=== PATIENT | male | born 1955 | race Caucasian/White ===

== ENCOUNTER 2022-03-19 06:00 | Day surgery (SDC) | payer OTHER ==
[~2022-03-19] VITALS: Ht 182.9 cm; Wt 99.5 kg
[~2022-03-19 06:00] MED LIST: ALDACTONE25 MG PO; ALOGLIPTIN12.5 MG PO; ASPIRIN81 MG PO; ENTRESTO 24 MG1 EACH PO; LIPITOR20 MG PO; MAPAP500 MG PO; METOPROLOL SUCC50 MG PO; REVATIO20 MG PO; VITAMIN D325 MC4 PO
--- NOTE | 2022-03-19 08:13 | NUR ---
03/19/22 0813 Xin Herrmann 0807-PATIENT ARRIVED TO PACU ON 6L MASK RR EVEN. PATIENT NONAROUSABLE LAYING LEFT LATERAL ABDOMEN SOFT. IVF INFUSING. SR.
--- NOTE | 2022-03-19 08:16 | NUR ---
PT ALERT, ORIENTED AND SUPPORTED BY HIS . PT IS HERE FOR HIS FIRST SCOPE. SEEMED TO DEAL WITH PREP APPROPRIATELY. OR STAFF WAITING, GAVE BLESSING, PTS' WILL REMAIN FOR DC. WILL FOLLOW NEEDED
--- NOTE | 2022-03-19 08:56 | OR ---
[facility] [address] [place], [place] [address] Signed DATE OF OPERATION: 03/19/2022 SURGEON: Michael Vasquez MD PREOPERATIVE DIAGNOSIS: Screening. POSTOPERATIVE DIAGNOSES: 1. Long redundant colon. 2. 5 mm polyp proximal transverse colon. 3. 8 mm polyp at splenic flexure (snare). 4. Minimal internal hemorrhoids. PROCEDURE: Colonoscopy with snare polypectomy and hot biopsy. ESTIMATED BLOOD LOSS: None. INDICATIONS: Rupert is a 66-year-old gentleman asked to see me for his initial screening colonoscopy. He has no family history of colon cancer or polyps. He told me his girlfriend of many years underwent colonoscopy with myself several years ago. More recently, Rupert underwent open-heart surgery with replacement of his mitral valve and insertion of a pacemaker. He has now gotten pass that and is doing quite well. In the office, I had given him a pamphlet on colonoscopy. We had reviewed the nature of the test. There is risk including, but not limited to gas bloating, crampy abdominal pain, bleeding, perforation requiring surgery, and missed diagnosis. We also reviewed the written instructions for the bowel prep line by line. He held his aspirin 3 days prior to the procedure. Also given his advanced medical issues including his heart, he requires monitored anesthesia care with infusion of propofol. He had expressed understanding and wished to proceed. PROCEDURE NOTE: Rupert was taken into our endoscopy suite and placed in the left lateral decubitus position. He was maintained on IV propofol per our nurse ramp service agent. A digital rectal exam was performed and this was unremarkable. There were no external hemorrhoids. He had good sphincter tone. We did not specifically feel anything concerning on the prostate gland. The adult colonoscope had been introduced and advanced under direct visualization of the camera. Overall, his prep was good. He had a few areas of liquid Electronically Signed By: MICHAEL VASQUEZ MD 03/19/22 0856 PATIENT NAME: RUPERT CUETO OPERATIVE REPORT DATE OF : 59 REPORT #: [id number] PHYSICIAN: MICHAEL VASQUEZ MD PCP: SHRADDHA RUBIO MD REPORT IS CONFIDENTIAL AND NOT TO BE RELEASED WITHOUT AUTHORIZATION [facility] [address] [place], [place] [address] Signed stool that we suctioned out for the most part. He has an incredibly long redundant left and transverse colon. His abdomen is quite atonic and protuberant and it took extra sedation and abdominal compression in order to advance the scope. We had to put him in the supine position and back into the left lateral decubitus position before we finally made it to the ileocecal valve and into the cecum itself. The scope was then slowly withdrawn. We took pictures throughout for photodocumentation. We used our hot biopsy forceps on the polyp in the proximal transverse colon. We used our snare for the polyp at the splenic flexure. It was then suctioned through the scope and captured in our canister. There was no diverticulosis. It was impressive to withdraw the scope through his long redundant colon. Once in the rectum, the scope was retroflexed and he does have some minimal internal hemorrhoid columns. After this, the gas was suctioned out and the colonoscope removed. Rupert tolerated the procedure quite well. RECOMMENDATIONS: I will see Rupert back in my office in 7 to 14 days to review his results. Michael Vasquez MD ALB/MODL /[id number] cc: Michael Vasquez MD [facility] Copies: MICHAEL VASQUEZ MD ~ Electronically Signed By: MICHAEL VASQUEZ MD 03/19/22 0856 PATIENT NAME: NORYRUPERT DOROTEO OPERATIVE REPORT DATE OF : 59 REPORT #: [id number] PHYSICIAN: MICHAEL VASQUEZ MD PCP: SHRADDHA RUBIO MD REPORT IS CONFIDENTIAL AND NOT TO BE RELEASED WITHOUT AUTHORIZATION
--- NOTE | 2022-03-21 14:22 | PATH ---
[facility] [address] [facility] [place] [address] Signed SPECIMEN(S): A PROXIMAL TRANSVERSE COLON POLYP SPECIMEN(S): B SPLENIC FLEXURE POLYP SPECIMEN SOURCE: A. PROXIMAL TRANSVERSE COLON POLYP B. SPLENIC FLEXURE POLYP CLINICAL HISTORY: Screening. Post: Redundant colon polyps; internal hemorrhoids FINAL PATHOLOGIC DIAGNOSIS: A. Proximal transverse colon polyp: - Tubular adenoma (two fragments). B. Splenic flexure polyp: - Tubular adenoma (one fragment). J[facility] [place]:C2NR MICROSCOPIC EXAMINATION: Histologic sections of all submitted blocks are examined by light microscopy. These findings, together with the gross examination, support the pathologic diagnosis. GROSS DESCRIPTION: A. The specimen, labeled and designated "Mike, C, 1" and designated on the requisition "proximal transverse polypectomy," is received in formalin and consists of one amador soft tissue fragment that is 0.3 cm in greatest dimension. The specimen is entirely submitted in (A1). B. The specimen, labeled and designated "Mike, C, 2" and designated on the requisition "splenic flexure polypectomy," is received in formalin and consists of two amador soft tissue fragments that measure, each 0.3 cm in greatest dimension. The specimen is entirely submitted in (B1). FB (under the direct supervision of a pathologist) The Gross Description was prepared using a voice recognition system. The report was reviewed for accuracy; however, sound-alike word errors, addition and/or deletions may occur. If there is any question about this report, please contact Client Services. PERFORMING LABORATORY: The technical component was performed by [facility], [address] [place] [id number] (CLIA# [id number]). Professional interpretation was PATIENT NAME: JOSEY CUETO PATHOLOGY DATE OF : 59 REPORT #: [id number] PHYSICIAN: [facility] PCP: SHRADDHA RUBIO MD REPORT IS CONFIDENTIAL AND NOT TO BE RELEASED WITHOUT AUTHORIZATION [facility] [address] [place] [id number] Signed performed by [facility] [address] [address] (CLIA#: [id number]). Diagnostician: Bubba Rose MD Pathologist Electronically Signed 03/21/2022 Copies: ~ PATIENT NAME: JOSEY CUETO PATHOLOGY DATE OF : 59 REPORT #: [id number] PHYSICIAN: [facility] PCP: SHRADDHA RUBIO MD REPORT IS CONFIDENTIAL AND NOT TO BE RELEASED WITHOUT AUTHORIZATION
== END 2022-03-19 09:20 | disposition home or self-care (01) ==
LOC: DS 06:00
PROVIDERS: ATTEND Colon & Rectal Surgery
PROC: 0DBE8ZZ Excision of Large Intestine, Via Natural or Artificial Opening Endoscopic (ICD-10-PCS; 2022-03-19)
PROC: 0DJD8ZZ Inspection of Lower Intestinal Tract, Via Natural or Artificial Opening Endoscopic (ICD-10-PCS; principal; 2022-03-19 07:30)
DX: Z12.11 Encounter for screening for malignant neoplasm of colon (principal); K63.5 Polyp of colon; K64.8 Other hemorrhoids; I12.9 Hypertensive chronic kidney disease with stage 1 through stage 4 chronic kidney disease, or unspecified chronic kidney disease; E11.22 Type 2 diabetes mellitus with diabetic chronic kidney disease; N18.31 Chronic kidney disease, stage 3a; J44.9 Chronic obstructive pulmonary disease, unspecified; K21.9 Gastro-esophageal reflux disease without esophagitis; E78.5 Hyperlipidemia, unspecified; I05.9 Rheumatic mitral valve disease, unspecified; I71.20 Thoracic aortic aneurysm, without rupture, unspecified; E66.9 Obesity, unspecified; Z95.0 Presence of cardiac pacemaker
CPT/HCPCS: J0690; J2704; J7121